=== PATIENT | female | born 1940 | race Native Hawaiian/Other Pacific Islander ===

== ENCOUNTER 2018-09-28 10:49 | Inpatient (IN) | payer MEDICARE, OTHER ==
[~2018-09-28] VITALS: Ht 147.3 cm; Wt 47.3 kg
[~2018-09-28 10:49] MED LIST: ALLO100T PO; LOSA25TA41 PO; METF-960 PO; METO50 PO
[2018-09-28 11:04] LABS: GLUCOSE,POINT OF CARE 141 MG/DL (70-110)
[2018-09-28 12:24] LABS: BASOPHILS % (AUTO) 1.5 % (0.0-2.0); HEMATOCRIT 25.2 % (36-46); HEMOGLOBIN 8.8 g/dL (12.0-16.0); LYMPHOCYTES # (AUTO) 3.1 K/uL (1.0-4.8); LYMPHOCYTES % (AUTO) 23.6 % (22.0-44.0); MEAN CORPUSCULAR HEMOGLOBIN 38.3 pg (26.0-34.0); MEAN CORPUSCULAR VOLUME 110 fL (80-100); MONOCYTES # (AUTO) 0.6 K/uL (0.1-1.0); MONOCYTES % (AUTO) 4.4 % (2.0-9.0); NEUTROPHILS # (AUTO) 9.1 K/uL (1.8-7.7); NEUTROPHILS % (AUTO) 69.5 % (40.0-70.0); PLATELET COUNT (AUTO) 266 K/uL (150-450); RED CELL DISTRIBUTION WIDTH 16.4 % (11.5-14.5)
[2018-09-28 12:32] LABS: ANION GAP 10 mmol/L (8-16); CALCIUM, TOTAL 8.5 mg/dL (8.8-10.5); CARBON DIOXIDE 24 mmol/L (22-29); CHLORIDE 103 mmol/L (98-107); CREATININE 0.87 mg/dL (0.60-1.30); GLUCOSE,RANDOM 134 mg/dL (70-110); POTASSIUM 4.1 mmol/L (3.5-5.1); SODIUM SERUM 137 mmol/L (136-145); UREA NITROGEN, BLOOD 20 mg/dL (7-18)
[2018-09-28 12:33] LABS: GLOMERULAR FILTR. RATE CALC > 60 mL/min (>60)
[2018-09-28 12:39] LABS: ALANINE AMINOTRANSFERASE 23 U/L (12-78); ALBUMIN 3.5 g/dL (3.4-5.0); ALKALINE PHOSPHATASE 98 U/L (46-116); ASPARTATE AMINOTRANSFERASE 22 U/L (15-37); BILIRUBIN,TOTAL 2.8 mg/dL (0.1-1.0); TOTAL PROTEIN, SERUM 8.9 g/dL (6.4-8.2)
[2018-09-28] MEDS ORDERED: PIPERACILLIN/TAZO 3.375 GM/D5W 50 ML IV ONE (14:15)
[2018-09-28] MEDS ORDERED: LIDOCAINE 2%/EPI 1:200,000/PF 20 ML VIAL ONE (15:06)
[2018-09-28] MEDS ORDERED: SODIUM CHLORIDE 0.9% 0 ML IV ONE (15:06)
[2018-09-28] MEDS ORDERED: BUPIVACAINE HCL/PF 0.5% 30 ML VIAL ONE (15:06)
[2018-09-28] MEDS ORDERED: RINGERS SOLUTION,LACTATED 0 ML IV ONE (15:06)
[2018-09-28] MEDS ORDERED: FentaNYL CITRATE-PF 100 MCG/2 ML VIAL IVP PRN (15:30)
[2018-09-28] MEDS ORDERED: HYDROmorphone 2 MG/ML SYRINGE IVP PRN (15:30)
[2018-09-28] MEDS ORDERED: MEPERIDINE-PF 25 MG/ML VIAL IVP PRN (15:30)
[2018-09-28] MEDS ORDERED: HYDROCODONE/ACETAMINOPHEN 5-325 MG TABLET PO PRN ×2 (16:30→17:15)
[2018-09-28] MEDS ORDERED: MORPHINE SULFATE 2 MG/ML SYRINGE IVP PRN ×2 (16:30→17:15)
[2018-09-28] MEDS ORDERED: ACETAMINOPHEN 500 MG TABLET PO PRN (16:30)
[2018-09-28] MEDS ORDERED: IBUPROFEN 800 MG TABLET PO PRN (16:30)
[2018-09-28] MEDS ORDERED: BISACODYL 10 MG RECTAL RECTAL SUPPOSITORY PR PRN (17:15)
[2018-09-28] MEDS ORDERED: ZOLPIDEM TARTRATE 5 MG TABLET PO PRN (17:15)
[2018-09-28] MEDS ORDERED: ONDANSETRON HCL 4 MG/2 ML VIAL IVP PRN (17:15)
[2018-09-28] MEDS ORDERED: MAGNESIUM HYDROXIDE SUSPENSION 30 ML UDCUP PO PRN (17:15)
[2018-09-28 17:21] VITALS: BP 129/69
[2018-09-28] MEDS: OXYGEN THERAPY IH SCH (20:00)
[2018-09-28 20:12] VITALS: BP 126/61
[2018-09-28] MEDS: PIPERACILLIN SODIUM/TAZOBACTAM 2.25 GM in DEXTROSE 5%-WATER 50 ML IV SCH (20:14)
[2018-09-28] MEDS: DOCUSATE SODIUM 100 MG CAPSULE PO SCH (20:21)
[2018-09-29 00:18] VITALS: BP 101/60
[2018-09-29] MEDS: HEPARIN SODIUM,PORCINE 5,000 UNITS/ML VIAL SQ SCH ×4 (00:37→23:35)
[2018-09-29] MEDS: PIPERACILLIN SODIUM/TAZOBACTAM 2.25 GM in DEXTROSE 5%-WATER 50 ML IV SCH ×4 (02:17→20:03)
[2018-09-29] MEDS ORDERED: ONDANSETRON HCL 4 MG/2 ML VIAL IVP ONE (05:08)
[2018-09-29] MEDS ORDERED: FentaNYL CITRATE-PF 100 MCG/2 ML VIAL IVP ONE (05:08)
[2018-09-29] MEDS ORDERED: 0.9% SODIUM CHLORIDE 10 ML VIAL IVP ONE (05:08)
[2018-09-29] MEDS ORDERED: PROPOFOL 1% 20 ML VIAL IVP ONE (05:08)
[2018-09-29] MEDS ORDERED: SUCCINYLCHOLINE CHLORIDE 20 MG/ML 10 ML VIAL IVP ONE (05:08)
[2018-09-29] MEDS ORDERED: LIDOCAINE/PF 2% 5 ML VIAL IM ONE (05:08)
[2018-09-29] MEDS ORDERED: DEXAMETHASONE SOD PHOS 4 MG/ML VIAL IVP ONE (05:08)
[2018-09-29] MEDS ORDERED: EPHEDrine SULFATE 50 MG/ML VIAL IM ONE (05:08)
[2018-09-29 05:23] VITALS: BP 106/55
[2018-09-29 07:52] VITALS: BP 91/50
[2018-09-29] MEDS: OXYGEN THERAPY IH SCH (08:00)
[2018-09-29] MEDS: DOCUSATE SODIUM 100 MG CAPSULE PO SCH ×2 (08:31→20:03)
[2018-09-29] MEDS: ALLOPURINOL 100 MG TABLET PO SCH (08:31)
[2018-09-29] MEDS: METOPROLOL TARTRATE 50 MG TABLET PO SCH (08:32)
[2018-09-29] MEDS: LOSARTAN POTASSIUM 25 MG TABLET PO SCH (08:32)
[2018-09-29] MEDS: PANTOPRAZOLE SODIUM 40 MG DR TABLET PO SCH (08:34)
[2018-09-29 11:05] VITALS: BP 92/50
[2018-09-29] MEDS: ACETAMINOPHEN 325 MG TABLET PO PRN ×2 (14:00→23:35)
[2018-09-29 16:36] VITALS: BP 101/67
[2018-09-29 20:30] VITALS: BP 107/51
[2018-09-30 00:12] VITALS: BP 125/60
[2018-09-30] MEDS: PIPERACILLIN SODIUM/TAZOBACTAM 2.25 GM in DEXTROSE 5%-WATER 50 ML IV SCH ×3 (02:19→14:48)
[2018-09-30 04:45] VITALS: BP 110/58
[2018-09-30 07:30] VITALS: BP 110/58
[2018-09-30] MEDS: HEPARIN SODIUM,PORCINE 5,000 UNITS/ML VIAL SQ SCH ×3 (08:00→16:00)
[2018-09-30] MEDS: PANTOPRAZOLE SODIUM 40 MG DR TABLET PO SCH (08:12)
[2018-09-30] MEDS: DOCUSATE SODIUM 100 MG CAPSULE PO SCH (08:12)
[2018-09-30] MEDS: ALLOPURINOL 100 MG TABLET PO SCH (08:12)
[2018-09-30] MEDS: LOSARTAN POTASSIUM 25 MG TABLET PO SCH (08:20)
[2018-09-30] MEDS: METOPROLOL TARTRATE 50 MG TABLET PO SCH (08:20)
[2018-09-30] MEDS ORDERED: SODIUM CHLORIDE 0.9% 250 ML IV ONE (08:22)
[2018-09-30] MEDS: ACETAMINOPHEN 325 MG TABLET PO PRN (08:31)
[2018-09-30 11:27] VITALS: BP 108/54
[2018-09-30 15:09] VITALS: BP 92/52
[2018-09-30] MEDS ORDERED: AMOX1TAB16 PO (17:36)
[2018-09-30] MEDS ORDERED: HYDR-4061 PO (17:48)
== END 2018-09-30 18:40 | disposition home or self-care (01) | DRG 342 ==
LOC: EMS 10:52 → 5N 14:45
PROVIDERS: ADMIT Internal Medicine; ATTEND Internal Medicine
PROC: 0DTJ4ZZ Resection of Appendix, Percutaneous Endoscopic Approach (ICD-10-PCS; principal; 2018-09-28 15:10)
DX: K35.80 Unspecified acute appendicitis (principal); E44.0 Moderate protein-calorie malnutrition; I10 Essential (primary) hypertension; M10.9 Gout, unspecified; D64.9 Anemia, unspecified; E11.9 Type 2 diabetes mellitus without complications; E78.00 Pure hypercholesterolemia, unspecified; E78.5 Hyperlipidemia, unspecified; Z88.8 Allergy status to other drugs, medicaments and biological substances; Z68.21 Body mass index [BMI] 21.0-21.9, adult
CPT/HCPCS: 74176; 88304; 93005; 96365; G0238; G0378; J0330; J1100; J1644; J2405; J2543; J2704; J3010; J3490; J7030; J7050; J7060; J7120

== ENCOUNTER 2019-02-24 10:49 | Inpatient (IN) | payer MEDICARE, OTHER ==
[~2019-02-24] VITALS: Ht 152.4 cm; Wt 47.0 kg
[~2019-02-24 10:49] MED LIST changes: +AMOX1TAB16 PO; +HYDR-4061 PO; -METF-960 PO
[2019-02-24] MEDS ORDERED: ATOR10TA84 PO (10:53)
[2019-02-24] MEDS ORDERED: SODIUM CHLORIDE 0.9% 1,000 ML IV ONE ×3 (11:00→15:00)
[2019-02-24 11:31] LABS: CALCIUM, TOTAL 8.6 mg/dL (8.8-10.5); CREATININE 1.21 mg/dL (0.60-1.30); POTASSIUM 4.1 mmol/L (3.5-5.1)
[2019-02-24 11:37] LABS: ALBUMIN 3.8 g/dL (3.4-5.0); BILIRUBIN,TOTAL 1.9 mg/dL (0.1-1.0); TOTAL PROTEIN, SERUM 8.8 g/dL (6.4-8.2)
[2019-02-24 11:57] LABS: INFLUENZA TYPE A NEGATIVE FOR TYPE A (NEGATIVE); INFLUENZA TYPE B NEGATIVE FOR TYPE B (NEGATIVE)
[2019-02-24 12:23] LABS: BASOPHILS % (AUTO) 0.7 % (0.0-2.0); EOSINOPHILS % (AUTO) 1.3 % (1.0-6.0); LYMPHOCYTES # (AUTO) 3.2 K/uL (1.0-4.8); LYMPHOCYTES % (AUTO) 21.9 % (22.0-44.0); MONOCYTES # (AUTO) 0.9 K/uL (0.1-1.0); NEUTROPHILS # (AUTO) 10.2 K/uL (1.8-7.7); NEUTROPHILS % (AUTO) 70.1 % (40.0-70.0); PLATELET COUNT (AUTO) 213 K/uL (150-450)
[2019-02-24 12:24] LABS: APPEARANCE,URINE CLOUDY (CLEAR); BILIRUBIN,URINE NEGATIVE (NEGATIVE); GLUCOSE, URINE (UA) NEGATIVE (NEGATIVE); KETONES,URINE NEGATIVE (NEGATIVE); LEUKOCYTE ESTERASE ,URINE LARGE (NEGATIVE); NITRATE,URINE POSITIVE (NEGATIVE); OCCULT BLOOD,URINE SMALL (NEGATIVE); PH,URINE 6.5 (5.0-8.0); PROTEIN,URINE TRACE (NEGATIVE)
[2019-02-24 12:36] LABS: BACTERIA,URINE Moderate /HPF (None Seen); SQUAMOUS EPITHELIAL CELL,UR Few /LPF (None Seen); WBC,URINE 51-100 /HPF (0-5)
[2019-02-24 12:53] LABS: RED CELL DISTRIBUTION WIDTH 16.2 % (11.5-14.5)
[2019-02-24 12:54] LABS: MEAN CORPUSCULAR VOLUME 137 fL (80-100)
[2019-02-24 12:55] LABS: HEMOGLOBIN 9.4 g/dL (12.0-16.0)
[2019-02-24] MEDS ORDERED: ONDANSETRON HCL 4 MG/2 ML VIAL IVP PRN ×2 (14:00→19:00)
[2019-02-24] MEDS ORDERED: CefTRIAXone 1 GM/DEXTROSE 50 ML IV ONE ×2 (14:00→20:00)
[2019-02-24] MEDS ORDERED: ACETAMINOPHEN 325 MG TABLET PO PRN (14:00)
[2019-02-24] MEDS ORDERED: ACETAMINOPHEN 500 MG TABLET PO ONE (14:00)
[2019-02-24 14:48] LABS: LACTIC ACID 9.9 mmol/L (0.4-2.0)
[2019-02-24 17:11] VITALS: BP 115/66
[2019-02-24] MEDS: LOSARTAN POTASSIUM 25 MG TABLET PO SCH (18:45)
[2019-02-24] MEDS: METOPROLOL TARTRATE 50 MG TABLET PO SCH (18:45)
[2019-02-24] MEDS ORDERED: HYDROCODONE/ACETAMINOPHEN 5-325 MG TABLET PO PRN (18:45)
[2019-02-24] MEDS ORDERED: LIDOCAINE/PF 1% 2 ML VIAL IM SCH (19:00)
[2019-02-24] MEDS ORDERED: OxyCODONE HCL/ACETAMINOPHEN 5-325 MG TABLET PO PRN (19:00)
[2019-02-24] MEDS ORDERED: BISACODYL 10 MG RECTAL RECTAL SUPPOSITORY PR PRN (19:00)
[2019-02-24] MEDS ORDERED: CefTRIAXone SODIUM 2 GM/VIAL IM SCH (19:00)
[2019-02-24 19:30] VITALS: BP 99/47
[2019-02-24] MEDS: ENOXAPARIN SODIUM 40 MG/0.4 ML PF SYRINGE SQ SCH (19:30)
[2019-02-24] MEDS: FAMOTIDINE 20 MG TABLET PO SCH (19:30)
[2019-02-24] MEDS: ALLOPURINOL 100 MG TABLET PO SCH (19:30)
[2019-02-24] MEDS: ATORVASTATIN CALCIUM 10 MG TABLET PO SCH (19:31)
[2019-02-24 19:45] LABS: PROTHROMBIN TIME 10.7 SEC (9.4-11.6)
[2019-02-24] MEDS: DOCUSATE SODIUM 100 MG CAPSULE PO SCH (20:51)
[2019-02-24 23:24] VITALS: BP 102/55
[2019-02-25 04:27] VITALS: BP 130/65
[2019-02-25] MEDS: ACETAMINOPHEN 325 MG TABLET PO PRN ×3 (04:31→21:05)
[2019-02-25 06:53] LABS: CALCIUM, TOTAL 7.5 mg/dL (8.8-10.5); CREATININE 1.01 mg/dL (0.60-1.30); POTASSIUM 3.4 mmol/L (3.5-5.1)
[2019-02-25 07:32] LABS: GLUCOMETER DEV NAME(LOC) 5N.1; GLUCOSE,POINT OF CARE 128 MG/DL (70-110)
[2019-02-25 07:45] VITALS: BP 114/57
[2019-02-25 07:52] LABS: BASOPHILS % (AUTO) 0.6 % (0.0-2.0); EOSINOPHILS % (AUTO) 0.8 % (1.0-6.0); LYMPHOCYTES # (AUTO) 3.1 K/uL (1.0-4.8); LYMPHOCYTES % (AUTO) 23.2 % (22.0-44.0); MONOCYTES % (AUTO) 7.3 % (2.0-9.0); NEUTROPHILS # (AUTO) 9.1 K/uL (1.8-7.7); NEUTROPHILS % (AUTO) 68.1 % (40.0-70.0); PLATELET COUNT (AUTO) 156 K/uL (150-450)
[2019-02-25] MEDS: ATORVASTATIN CALCIUM 10 MG TABLET PO SCH (08:36)
[2019-02-25 08:37] LABS: RED CELL DISTRIBUTION WIDTH 15.8 % (11.5-14.5)
[2019-02-25] MEDS: DOCUSATE SODIUM 100 MG CAPSULE PO SCH ×2 (08:37→21:05)
[2019-02-25] MEDS: ALLOPURINOL 100 MG TABLET PO SCH (08:37)
[2019-02-25] MEDS: ENOXAPARIN SODIUM 40 MG/0.4 ML PF SYRINGE SQ SCH (08:37)
[2019-02-25] MEDS: FAMOTIDINE 20 MG TABLET PO SCH (08:37)
[2019-02-25 08:38] LABS: MEAN CORPUSCULAR VOLUME 135 fL (80-100)
[2019-02-25] MEDS: METOPROLOL TARTRATE 50 MG TABLET PO SCH (09:00)
[2019-02-25] MEDS: LOSARTAN POTASSIUM 25 MG TABLET PO SCH (09:00)
[2019-02-25 11:45] VITALS: BP 105/55
[2019-02-25] MEDS ORDERED: POTASSIUM CHLORIDE 20 MEQ ER TABLET PO ONE ×2 (13:45→18:00)
[2019-02-25 16:33] VITALS: BP 121/57
[2019-02-25] MEDS: FOLIC ACID 1 MG TABLET PO SCH (18:53)
[2019-02-25 20:18] VITALS: BP 126/66
[2019-02-25] MEDS: CefTRIAXone SODIUM 2 GM in DEXTROSE 5%-WATER 50 ML IV SCH (20:31)
[2019-02-25 23:18] VITALS: BP 110/51
[2019-02-26 05:25] VITALS: BP 146/72
[2019-02-26 06:41] LABS: CALCIUM, TOTAL 8.1 mg/dL (8.8-10.5); CREATININE 1.07 mg/dL (0.60-1.30)
[2019-02-26 06:45] LABS: POTASSIUM 6.3 mmol/L (3.5-5.1)
[2019-02-26 07:40] LABS: HEMOGLOBIN 7.6 g/dL (12.0-16.0); MEAN CORPUSCULAR VOLUME 142 fL (80-100)
[2019-02-26 07:42] LABS: BASOPHILS % (AUTO) 1.3 % (0.0-2.0); EOSINOPHILS % (AUTO) 1.5 % (1.0-6.0); LYMPHOCYTES # (AUTO) 4.5 K/uL (1.0-4.8); LYMPHOCYTES % (AUTO) 37.2 % (22.0-44.0); MONOCYTES # (AUTO) 1.2 K/uL (0.1-1.0); MONOCYTES % (AUTO) 10.1 % (2.0-9.0); NEUTROPHILS % (AUTO) 49.9 % (40.0-70.0); PLATELET COUNT (AUTO) 165 K/uL (150-450)
[2019-02-26 07:44] LABS: RED CELL DISTRIBUTION WIDTH 16.2 % (11.5-14.5)
[2019-02-26 07:45] VITALS: BP 154/81
[2019-02-26] MEDS: ENOXAPARIN SODIUM 40 MG/0.4 ML PF SYRINGE SQ SCH (08:37)
[2019-02-26] MEDS: FAMOTIDINE 20 MG TABLET PO SCH (08:37)
[2019-02-26] MEDS: METOPROLOL TARTRATE 50 MG TABLET PO SCH (08:37)
[2019-02-26] MEDS: ATORVASTATIN CALCIUM 10 MG TABLET PO SCH (08:37)
[2019-02-26] MEDS: ALLOPURINOL 100 MG TABLET PO SCH (08:37)
[2019-02-26] MEDS: FOLIC ACID 1 MG TABLET PO SCH (08:37)
[2019-02-26] MEDS: DOCUSATE SODIUM 100 MG CAPSULE PO SCH ×2 (08:38→20:38)
[2019-02-26] MEDS: LOSARTAN POTASSIUM 25 MG TABLET PO SCH (09:00)
[2019-02-26 11:15] VITALS: BP 124/64
[2019-02-26 15:25] VITALS: BP 135/57
[2019-02-26] MEDS: ACETAMINOPHEN 325 MG TABLET PO PRN ×2 (15:57→21:31)
[2019-02-26 20:02] VITALS: BP 119/57
[2019-02-26] MEDS: CefTRIAXone SODIUM 2 GM in DEXTROSE 5%-WATER 50 ML IV SCH (20:39)
[2019-02-27] VITALS (7 sets, daily range): BP systolic 105–128; BP diastolic 57–73
[2019-02-27 06:21] LABS: BASOPHILS % (AUTO) 0.7 % (0.0-2.0); EOSINOPHILS % (AUTO) 2.1 % (1.0-6.0); HEMOGLOBIN 7.7 g/dL (12.0-16.0); LYMPHOCYTES # (AUTO) 3.3 K/uL (1.0-4.8); LYMPHOCYTES % (AUTO) 37.1 % (22.0-44.0); MEAN CORPUSCULAR VOLUME 147 fL (80-100); MONOCYTES # (AUTO) 0.9 K/uL (0.1-1.0); MONOCYTES % (AUTO) 9.9 % (2.0-9.0); NEUTROPHILS # (AUTO) 4.5 K/uL (1.8-7.7); NEUTROPHILS % (AUTO) 50.2 % (40.0-70.0); PLATELET COUNT (AUTO) 175 K/uL (150-450)
[2019-02-27 06:27] LABS: CALCIUM, TOTAL 8.3 mg/dL (8.8-10.5); CREATININE 1.16 mg/dL (0.60-1.30); POTASSIUM 5.5 mmol/L (3.5-5.1)
[2019-02-27 06:59] LABS: HEMATOCRIT 24.2 % (36-46)
[2019-02-27] MEDS: DOCUSATE SODIUM 100 MG CAPSULE PO SCH ×2 (08:17→20:35)
[2019-02-27] MEDS: LOSARTAN POTASSIUM 25 MG TABLET PO SCH (08:17)
[2019-02-27] MEDS: FAMOTIDINE 20 MG TABLET PO SCH (08:17)
[2019-02-27] MEDS: ALLOPURINOL 100 MG TABLET PO SCH (08:17)
[2019-02-27] MEDS: ENOXAPARIN SODIUM 40 MG/0.4 ML PF SYRINGE SQ SCH (08:18)
[2019-02-27] MEDS: ATORVASTATIN CALCIUM 10 MG TABLET PO SCH (08:18)
[2019-02-27] MEDS: FOLIC ACID 1 MG TABLET PO SCH (08:18)
[2019-02-27 08:41] LABS: GLUCOMETER DEV NAME(LOC) 5N.2; GLUCOSE,POINT OF CARE 124 MG/DL (70-110)
[2019-02-27] MEDS: METOPROLOL TARTRATE 50 MG TABLET PO SCH (09:00)
[2019-02-27] MEDS: ACETAMINOPHEN 325 MG TABLET PO PRN (20:35)
[2019-02-27] MEDS: CefTRIAXone SODIUM 2 GM in DEXTROSE 5%-WATER 50 ML IV SCH (20:35)
[2019-02-27 23:56] LABS: GLUCOMETER DEV NAME(LOC) 5N.1; GLUCOSE,POINT OF CARE 153 MG/DL (70-110)
[2019-02-28 04:34] VITALS: BP 112/62
[2019-02-28 07:19] LABS: CALCIUM, TOTAL 8.7 mg/dL (8.8-10.5); CREATININE 0.95 mg/dL (0.60-1.30); POTASSIUM 5.2 mmol/L (3.5-5.1)
[2019-02-28 07:53] VITALS: BP 100/52
[2019-02-28 08:27] LABS: HEMOGLOBIN 7.4 g/dL (12.0-16.0)
[2019-02-28 08:28] LABS: MEAN CORPUSCULAR VOLUME 142 fL (80-100)
[2019-02-28 08:30] LABS: PLATELET COUNT (AUTO) 195 K/uL (150-450)
[2019-02-28 08:31] LABS: BASOPHILS % (AUTO) 1.3 % (0.0-2.0); EOSINOPHILS % (AUTO) 2.1 % (1.0-6.0); LYMPHOCYTES % (AUTO) 50.8 % (22.0-44.0)
[2019-02-28] MEDS: LOSARTAN POTASSIUM 25 MG TABLET PO SCH (08:55)
[2019-02-28] MEDS: METOPROLOL TARTRATE 50 MG TABLET PO SCH (08:55)
[2019-02-28] MEDS: ATORVASTATIN CALCIUM 10 MG TABLET PO SCH (09:01)
[2019-02-28] MEDS: ALLOPURINOL 100 MG TABLET PO SCH (09:01)
[2019-02-28] MEDS: FAMOTIDINE 20 MG TABLET PO SCH (09:01)
[2019-02-28] MEDS: FOLIC ACID 1 MG TABLET PO SCH (09:01)
[2019-02-28] MEDS: DOCUSATE SODIUM 100 MG CAPSULE PO SCH (09:01)
[2019-02-28] MEDS: ENOXAPARIN SODIUM 40 MG/0.4 ML PF SYRINGE SQ SCH (09:02)
[2019-02-28 11:06] VITALS: BP 105/52
[2019-02-28] MEDS ORDERED: CEPH500 PO (11:08)
[2019-02-28] MEDS ORDERED: ACET-2247 PO (11:09)
[2019-02-28 15:37] VITALS: BP 125/62
== END 2019-02-28 17:00 | disposition home or self-care (01) | DRG 871 ==
LOC: EMS 10:50 → 5N 15:39 → 5S 02-26 16:30 → 5N 02-27 17:25
PROVIDERS: ADMIT Internal Medicine; ATTEND Internal Medicine
DX: A41.51 Sepsis due to Escherichia coli [E. coli] (principal); G93.41 Metabolic encephalopathy; N12 Tubulo-interstitial nephritis, not specified as acute or chronic; E11.9 Type 2 diabetes mellitus without complications; I10 Essential (primary) hypertension; E78.5 Hyperlipidemia, unspecified; M10.9 Gout, unspecified; E78.00 Pure hypercholesterolemia, unspecified; D63.8 Anemia in other chronic diseases classified elsewhere; Z88.8 Allergy status to other drugs, medicaments and biological substances; Z83.3 Family history of diabetes mellitus
CPT/HCPCS: 51701; 76770; 82607; 83605; 84132; 86850; 86870; 86900; 86901; 87040; 87086; 87205; 87804; 93005; J0696; J1650; J7030; J7060

== ENCOUNTER → 2019-08-28 | Outpatient (CLI) | payer MEDICARE ==
[~2019-08-28] MED LIST changes: +ACET-2247 PO; -AMOX1TAB16 PO; +ATOR10TA84 PO; +CEPH500 PO; -LOSA25TA41 PO; +LOSA25TA71 PO
== END | disposition home or self-care (01) ==
LOC: PUC 13:03
DX: N39.0 Urinary tract infection, site not specified (principal)
CPT/HCPCS: 87086

== ENCOUNTER 2019-10-13 16:26 | Emergency (ER) | payer MEDICARE ==
[~2019-10-13] VITALS: Ht 149.9 cm; Wt 54.5 kg
[2019-10-13 17:39] LABS: APPEARANCE,URINE CLEAR (CLEAR); BILIRUBIN,URINE NEGATIVE (NEGATIVE); GLUCOSE, URINE (UA) NEGATIVE (NEGATIVE); KETONES,URINE NEGATIVE (NEGATIVE); LEUKOCYTE ESTERASE ,URINE SMALL (NEGATIVE); NITRATE,URINE NEGATIVE (NEGATIVE); OCCULT BLOOD,URINE SMALL (NEGATIVE); PROTEIN,URINE NEGATIVE (NEGATIVE)
[2019-10-13 17:50] LABS: BACTERIA,URINE Moderate /HPF (None Seen); SQUAMOUS EPITHELIAL CELL,UR Few /LPF (None Seen)
[2019-10-13 18:10] VITALS: BP 162/69
[2019-10-13 18:30] LABS: GLUCOSE,POINT OF CARE 119 MG/DL (70-110)
== END 2019-10-13 18:18 | disposition home or self-care (01) ==
LOC: EMS 16:27
DX: N39.0 Urinary tract infection, site not specified (principal)
CPT/HCPCS: 87086

== ENCOUNTER 2019-11-07 11:23 | Emergency (ER) | payer MEDICARE ==
[~2019-11-07] VITALS: Ht 149.9 cm; Wt 45.5 kg
[~2019-11-07 11:23] MED LIST changes: -CEPH500 PO
[2019-11-07 13:00] VITALS: BP 121/75
[2019-11-07 13:00] LABS: APPEARANCE,URINE TURBID (CLEAR); BILIRUBIN,URINE PRELIM. POSITIVE (NEGATIVE); GLUCOSE, URINE (UA) NEGATIVE (NEGATIVE); KETONES,URINE NEGATIVE (NEGATIVE); LEUKOCYTE ESTERASE ,URINE LARGE (NEGATIVE); NITRATE,URINE NEGATIVE (NEGATIVE); OCCULT BLOOD,URINE LARGE (NEGATIVE); PROTEIN,URINE SEE CONFIRM (NEGATIVE)
[2019-11-07 13:08] LABS: SULFOSALICYLIC ACID,URINE 2+ (Negative)
[2019-11-07 13:10] LABS: BACTERIA,URINE Few /HPF (None Seen); RBC,URINE 0-2 /HPF (0-2); SQUAMOUS EPITHELIAL CELL,UR Few /LPF (None Seen); WBC,URINE Full Field /HPF (0-5)
[2019-11-07] MEDS ORDERED: SULFAMETHOX/TRIMETH DS 800-160 MG/TABLET PO ONE (13:15)
== END 2019-11-07 13:20 | disposition home or self-care (01) ==
LOC: EMS 11:25
DX: N39.0 Urinary tract infection, site not specified (principal)
CPT/HCPCS: 87086

== ENCOUNTER 2019-11-09 22:10 | Emergency (ER) | payer MEDICARE ==
[~2019-11-09] VITALS: Ht 149.9 cm; Wt 45.0 kg
[~2019-11-09 22:10] MED LIST changes: -ACET-2247 PO
[2019-11-09 22:19] VITALS: BP 131/98
[2019-11-10 01:01] LABS: GLUCOMETER DEV NAME(LOC) AHU.; GLUCOSE,POINT OF CARE 109 MG/DL (70-110)
== END 2019-11-09 23:24 | disposition left against medical advice (07) ==
LOC: EMS 22:10
DX: R50.9 Fever, unspecified (principal); Z53.21 Procedure and treatment not carried out due to patient leaving prior to being seen by health care provider